=== PATIENT | male | born 1995 | race Caucasian/White ===

== ENCOUNTER 2019-02-05 21:51 | Emergency (ER) | payer OTHER, SELFPAY ==
[2019-02-05] MEDS ORDERED: Adacel (T-DAP) 0.5 ML SYRINGE ONE (22:10)
[2019-02-05] MEDS ORDERED: Lidocaine 1% w/Epinephrine 1:100K 30 ML VIAL ONE (22:16)
[2019-02-05] MEDS ORDERED: Lidocaine 1% (PF) 30 ML VIAL ONE (22:17)
--- NOTE | 2019-02-05 22:41 | RAD ---
LEFT ELBOW TWO VIEWS: 02/05/19 HISTORY: Left elbow laceration. There is no signs of fracture, dislocation or joint effusion. No radiopaque foreign bodies. IMPRESSION: No fracture or radiopaque foreign bodies. POS: OFF
[2019-02-05] MEDS ORDERED: Bacitracin Zinc 1 Packet ONE (23:01)
== END 2019-02-05 23:17 | disposition home or self-care (01) ==
LOC: NAV ERS 21:51
DX: S51.012A Laceration without foreign body of left elbow, initial encounter (principal); Z87.891 Personal history of nicotine dependence; W45.8XXA Other foreign body or object entering through skin, initial encounter
CPT/HCPCS: 12002; 90471; 90715; 99001; J2001